=== PATIENT | male | born 1945 | race Caucasian/White ===

== ENCOUNTER 2022-07-12 19:51 | Inpatient (IN) ==
[2022-07-12 20:21] LABS: Basophils # 0.1 10*3/uL (0.0-0.2); Basophils % 0.4 % (0.0-0.8); Eosinophils # 0.2 10*3/uL (0.0-0.87); Eosinophils % 1.4 % (0.00-10.9); Hematocrit 44.4 VOL% (42.0-52.0); Hemoglobin 14.3 GM/DL (14.0-18.0); Immature Granulocytes % 0.4 %; Immature Granulocytes Absolute 0.05 #; Lymphocytes # 1.7 10*3/uL (1.4-4.0); Lymphocytes % 14.6 % (21.2-54.2); Mean Corpuscular HGB Conc 32.2 GM/DL (32-36); Mean Corpuscular Volume 90.8 FL (87-102); Mean Platelet Volume 11.3 FL (9.6-12.0); Monocytes # 0.6 10*3/uL (0.11-0.8); Monocytes % 5.4 % (1.7-12.7); Neutrophils % 77.8 % (38.7-73.9); Platelet Count 171 T/CUMM (130-400); Red Blood Count 4.89 MC/CUMM (3.8-5.5); Red Cell Distribution Width 14.6 % (9.3-17.3); White Blood Count 11.7 T/CUMM (4-12)
[2022-07-12 20:35] LABS: INR 1.1; PT Patient Result 11.9 SECS (10.1-12.1); Partial Thromboplastin Time 31.6 SECS (23.7-32.9)
[2022-07-12 20:44] LABS: Albumin 3.7 G/DL (3.4-5.0); Bilirubin,Total 2.1 MG/DL (0.20-1.00); Calcium 8.6 MG/DL (8.5-10.1); Osmolality,Calculated 282.1 MOS/KG (273-304); Potassium 4.5 MMOL/L (3.5-5.1); Total Protein 6.4 G/DL (6.4-8.2)
[2022-07-12 20:55] LABS: Platelet Estimate Adequate
[2022-07-12 21:33] LABS: Thyroid Stimulating Hormone 2.47 uIU/ml (0.358-3.74)
[2022-07-12] MEDS ORDERED: FUROSEMIDE 20 MG/2 ML VIAL IV STA (22:16)
[2022-07-12] MEDS ORDERED: FUROSEMIDE 40 MG/4 ML VIAL ONE (22:24)
[2022-07-12] MEDS ORDERED: FUROSEMIDE 40 MG/4 ML VIAL IV STA (23:05)
[2022-07-12] MEDS ORDERED: hydrALAZINE 20 MG/1 ML VIAL IV STA ×2 (23:44→23:46)
[2022-07-13] MEDS ORDERED: ALUMINUM/MAGNES/SIMETH MAX STR 30 ML UDCUP PO PRN (01:08)
[2022-07-13] MEDS ORDERED: ONDANSETRON 4 MG/2 ML VIAL IV PRN (01:08)
[2022-07-13] MEDS ORDERED: ACETAMINOPHEN 325 MG TABLET PO PRN (01:08)
[2022-07-13] MEDS ORDERED: hydrALAZINE 20 MG/1 ML VIAL IV PRN (01:08)
[2022-07-13] MEDS ORDERED: ASPIRIN 325 MG TABLET PO STA (01:18)
[2022-07-13 04:13] LABS: Basophils # 0.1 10*3/uL (0.0-0.2); Basophils % 0.5 % (0.0-0.8); Eosinophils # 0.2 10*3/uL (0.0-0.87); Eosinophils % 1.8 % (0.00-10.9); Hematocrit 45.3 VOL% (42.0-52.0); Hemoglobin 14.5 GM/DL (14.0-18.0); Immature Granulocytes % 0.4 %; Immature Granulocytes Absolute 0.04 #; Lymphocytes # 1.1 10*3/uL (1.4-4.0); Lymphocytes % 9.6 % (21.2-54.2); Mean Corpuscular Volume 90.8 FL (87-102); Mean Platelet Volume 11.4 FL (9.6-12.0); Monocytes # 0.7 10*3/uL (0.11-0.8); Monocytes % 6.3 % (1.7-12.7); Neutrophils % 81.4 % (38.7-73.9); Platelet Count 183 T/CUMM (130-400); Red Blood Count 4.99 MC/CUMM (3.8-5.5); Red Cell Distribution Width 14.7 % (9.3-17.3); White Blood Count 11.2 T/CUMM (4-12)
[2022-07-13 04:26] LABS: Calcium 8.5 MG/DL (8.5-10.1); Osmolality,Calculated 282.1 MOS/KG (273-304); Potassium 3.6 MMOL/L (3.5-5.1)
[2022-07-13] MEDS: FUROSEMIDE 40 MG/4 ML VIAL IV SCH (06:10)
[2022-07-13] MEDS: LEVOTHYROXINE 75 MCG TABLET PO SCH (06:10)
[2022-07-13 08:15] LABS: Risk Ratio 2.53; VLDL Cholesterol 12.6 MG/DL
[2022-07-13] MEDS ORDERED: LISINOPRIL/HCTZ 10-12.5 MG TABLET PO SCH (09:00)
[2022-07-13] MEDS: PANTOPRAZOLE 40 MG TABLET PO SCH (09:05)
[2022-07-13] MEDS: hydroCHLOROthiazide 12.5 MG CAPSULE PO SCH (09:05)
[2022-07-13] MEDS: lisinopriL 10 MG TABLET PO SCH (09:05)
[2022-07-13] MEDS: DOCUSATE SODIUM 100 MG CAPSULE PO SCH ×2 (09:05→21:00)
[2022-07-13] MEDS: METOPROLOL TARTRATE 50 MG TABLET PO SCH ×2 (09:05→21:00)
[2022-07-13] MEDS: APIXABAN 5 MG TABLET PO SCH ×2 (09:05→21:00)
[2022-07-13] MEDS: MONTELUKAST 10 MG TABLET PO SCH (09:06)
[2022-07-13] MEDS ORDERED: ROSUVASTATIN 10 MG TABLET PO SCH (21:00)
[2022-07-14] MEDS: LEVOTHYROXINE 75 MCG TABLET PO SCH (05:35)
[2022-07-14 06:12] LABS: Albumin 3.1 G/DL (3.4-5.0); Bilirubin,Total 1.2 MG/DL (0.20-1.00); Calcium 8.2 MG/DL (8.5-10.1); Potassium 3.9 MMOL/L (3.5-5.1)
[2022-07-14 06:20] LABS: Basophils # 0.1 10*3/uL (0.0-0.2); Basophils % 0.6 % (0.0-0.8); Eosinophils # 0.4 10*3/uL (0.0-0.87); Eosinophils % 3.6 % (0.00-10.9); Hematocrit 43.6 VOL% (42.0-52.0); Hemoglobin 14.3 GM/DL (14.0-18.0); Immature Granulocytes % 0.2 %; Immature Granulocytes Absolute 0.02 #; Lymphocytes # 1.4 10*3/uL (1.4-4.0); Lymphocytes % 13.7 % (21.2-54.2); Mean Corpuscular HGB Conc 32.8 GM/DL (32-36); Mean Platelet Volume 10.9 FL (9.6-12.0); Monocytes # 0.7 10*3/uL (0.11-0.8); Monocytes % 6.9 % (1.7-12.7); Platelet Count 198 T/CUMM (130-400); Red Blood Count 4.79 MC/CUMM (3.8-5.5); Red Cell Distribution Width 14.6 % (9.3-17.3)
[2022-07-14] MEDS: lisinopriL 10 MG TABLET PO SCH (08:19)
[2022-07-14] MEDS: MONTELUKAST 10 MG TABLET PO SCH (08:19)
[2022-07-14] MEDS: hydroCHLOROthiazide 12.5 MG CAPSULE PO SCH (08:19)
[2022-07-14] MEDS: METOPROLOL TARTRATE 50 MG TABLET PO SCH (08:19)
[2022-07-14] MEDS: APIXABAN 5 MG TABLET PO SCH (08:19)
[2022-07-14] MEDS: FUROSEMIDE 40 MG/4 ML VIAL IV SCH (08:20)
[2022-07-14] MEDS: DOCUSATE SODIUM 100 MG CAPSULE PO SCH (08:20)
[2022-07-14] MEDS: PANTOPRAZOLE 40 MG TABLET PO SCH (08:20)
[2022-07-14 09:52] LABS: Anisocytosis 1+; Platelet Estimate Normal
[2022-07-14 10:32] VITALS: BP 110/74
== END 2022-07-14 12:30 | disposition home or self-care (01) | DRG 291 ==
LOC: N.ED 19:51 → SUATTDRO 07-13 01:19 → N.EDINP 07-13 01:19 → N.2W 07-13 10:14
PROVIDERS: ADMIT Internal Medicine; ATTEND Internal Medicine